=== PATIENT | female | born 1995 | race African-American/Black ===

== ENCOUNTER 2017-04-05 19:30 | Emergency (ER) | payer MEDICAID ==
[~2017-04-05] VITALS: Ht 167.6 cm; Wt 70.0 kg
[2017-04-05] MEDS ORDERED: TETRACAINE 0.5% OPHTH DROPS 4ML OP ONE (21:00)
[2017-04-05] MEDS ORDERED: BALANCED SALT IRRIG SOLN 15ML IO ONE (21:00)
[2017-04-05] MEDS ORDERED: IBUPROFEN 800MG TABLET PO ONE (21:00)
[2017-04-05] MEDS ORDERED: FLUORESCEIN SODIUM 1MG/STRIP OP ONE (21:00)
[2017-04-05] MEDS ORDERED: DIPHENHYDRAMINE 25MG CAPSULE PO ONE (21:30)
[2017-04-05 21:34] VITALS: BP 122/77
== END 2017-04-05 22:21 | disposition home or self-care (01) ==
LOC: ER 21:22
DX: H10.11 Acute atopic conjunctivitis, right eye (principal); F17.200 Nicotine dependence, unspecified, uncomplicated; F12.10 Cannabis abuse, uncomplicated
CPT/HCPCS: 99284; J7040; J7050; Q0163